=== PATIENT | female | born 1940 | race African-American/Black ===

== ENCOUNTER 2018-05-03 17:40 | Inpatient (IN) | payer MEDICARE, MEDICAID ==
[~2018-05-03] VITALS: Ht 165.1 cm; Wt 70.3 kg
[2018-05-03] MEDS: METOPROLOL TARTRATE 25MG TABLET PO SCH
[2018-05-03] MEDS ORDERED: ONDANSETRON HCL 4MG/2ML INJ IV STA (18:37)
[2018-05-03] MEDS ORDERED: MORPHINE SULFATE 4 MG/ML CPJ (NOT FOR IM USE) IV STA (18:37)
[2018-05-03] MEDS ORDERED: SODIUM CHLORIDE 0.9% 1,000 ML IV ONE (18:37)
[2018-05-03 19:01] LABS: HEMATOCRIT. 37.8 % (36.0-48.0); HEMOGLOBIN. 12.2 g/dL (12.0-16.0); MEAN CORPUSCULAR VOLUME 86.9 fL (81.0-99.0); MEAN PLATELET VOLUME 8.1 fl (7.4-10.4); PLATELET 230 x1000/uL (130-400); RED BLOOD CELL COUNT 4.35 mill/uL (4.2-5.4); RED CELL DISTRIBUTION WIDTH 16.3 % (11.6-14.6)
[2018-05-03 19:10] LABS: INR 1.1; PROTHROMBIN TIME 10.6 sec (9.1-11.1)
[2018-05-03 19:17] LABS: CHLORIDE 105 mEq/L (98-107)
[2018-05-03 19:21] LABS: ETHANOL BLOOD < 10 mg/dL
[2018-05-03 19:26] LABS: CREATINE KINASE 114 IU/L (26-192)
[2018-05-03] MEDS ORDERED: MAGNESIUM/ALUMINUM HYDROXIDE/SIMETHICONE 30ML UDC PO PRN (19:45)
[2018-05-03] MEDS ORDERED: DOCUSATE SODIUM 100MG CAPSULE PO PRN (19:45)
[2018-05-03] MEDS ORDERED: KETOROLAC 15MG/ML VIAL IV PRN (19:45)
[2018-05-03] MEDS ORDERED: DIPHENHYDRAMINE 50MG/ML VIAL IV PRN (19:45)
[2018-05-03] MEDS ORDERED: LORAZEPAM 0.5MG TABLET PO PRN (19:45)
[2018-05-03] MEDS ORDERED: IPRATROPIUM/ALBUTEROL 0.5-3(2.5)MG/3ML NEB INH PRN (19:45)
[2018-05-03] MEDS ORDERED: ACETAMINOPHEN 325MG TABLET PO PRN (19:45)
[2018-05-03] MEDS ORDERED: NITROGLYCERIN 0.4MG TABLET SL SL PRN (19:45)
[2018-05-03] MEDS ORDERED: TRAMADOL 50MG TABLET PO PRN (19:45)
[2018-05-03] MEDS ORDERED: GUAIFENESIN 200MG/10ML SUGAR FREE UDC PO PRN (19:45)
[2018-05-03] MEDS ORDERED: CLONIDINE 0.1MG TABLET PO PRN (19:45)
[2018-05-03] MEDS ORDERED: ONDANSETRON HCL 4MG/2ML INJ IV PRN (19:45)
[2018-05-03 20:14] LABS: PLATELET ESTIMATE NORMAL
[2018-05-03] MEDS ORDERED: FAMOTIDINE 20MG TABLET PO SCH (21:00)
[2018-05-03] MEDS: LISINOPRIL 20MG TABLET PO SCH (23:27)
[2018-05-03] MEDS: FAMOTIDINE 20MG TABLET PO SCH (23:28)
[2018-05-03] MEDS: ASCORBIC ACID 500 MG TABLET PO SCH (23:29)
[2018-05-03] MEDS ORDERED: ZOLPIDEM TARTRATE 5MG TABLET PO PRN (23:29)
[2018-05-03 23:30] VITALS: BP 139/65
[2018-05-03] MEDS ORDERED: NA PHOS,M-B/NA PHOS,DI-BA ENEMA 118ML PR PRN (23:30)
[2018-05-04] MEDS: MORPHINE SULFATE 4 MG/ML CPJ (NOT FOR IM USE) IV PRN ×3 (00:08→17:53)
[2018-05-04] MEDS: DEXT 5%/0.45% NACL 1000ML 1,000 ML IV SCH ×2 (03:36→15:06)
[2018-05-04 04:00] VITALS: BP 150/72
[2018-05-04] MEDS ORDERED: BACITRACIN 15GM TUBE TOP ONE (07:17)
[2018-05-04] MEDS ORDERED: VANCOMYCIN HCL 500 MG/VIAL ONE (07:17)
[2018-05-04 08:00] VITALS: BP 164/71
[2018-05-04] MEDS ORDERED: ROCURONIUM BROMIDE 10MG/ML VIAL 5ML IV ONE (09:12)
[2018-05-04] MEDS ORDERED: MIDAZOLAM HCL 2 MG/2 ML VIAL ONE (09:12)
[2018-05-04] MEDS ORDERED: FENTANYL CITRATE/PF 50MCG/ML 2ML VIAL ONE ×2 (09:12→10:26)
[2018-05-04] MEDS ORDERED: SODIUM CHLORIDE 0.9% 10ML VIAL ONE ×3 (09:16→10:16)
[2018-05-04] MEDS ORDERED: CEFAZOLIN SODIUM 1000MG/VIAL ONE (09:16)
[2018-05-04] MEDS ORDERED: DEXAMETHASONE 4MG/ML 1ML VIAL ONE (09:16)
[2018-05-04] MEDS ORDERED: PHENYLEPHRINE HCL 10 MG/ML 1ML (IV VIAL) IV ONE (09:20)
[2018-05-04] MEDS ORDERED: ONDANSETRON HCL 4MG/2ML INJ ONE (09:46)
[2018-05-04] MEDS ORDERED: HYDRALAZINE 20MG/ML VIAL ONE (10:16)
[2018-05-04] MEDS ORDERED: HYDROMORPHONE HCL/PF 2MG/ML CPJ IV PRN (10:30)
[2018-05-04] MEDS ORDERED: KETOROLAC 30MG/ML VIAL IV PRN (11:45)
[2018-05-04 12:30] VITALS: BP 130/69
[2018-05-04] MEDS: LISINOPRIL 20MG TABLET PO SCH ×2 (14:58→21:00)
[2018-05-04] MEDS: FAMOTIDINE 20MG TABLET PO SCH (14:58)
[2018-05-04] MEDS: ASCORBIC ACID 500 MG TABLET PO SCH ×2 (14:58→20:26)
[2018-05-04] MEDS: CEFAZOLIN 1000MG PREMIX 50 ML IV SCH ×2 (14:59→22:47)
[2018-05-04] MEDS: METOPROLOL TARTRATE 25MG TABLET PO SCH ×2 (14:59→21:00)
[2018-05-04] MEDS: ENOXAPARIN 40MG/0.4ML SYR SUBCUT SCH (15:05)
[2018-05-04] MEDS: ZINC SULFATE 220 MG ( 50 ) CAPSULE PO SCH (15:12)
[2018-05-04] MEDS: FERROUS SULFATE 300MG/5ML UDC PO SCH ×3 (15:12→17:47)
[2018-05-04 16:07] VITALS: BP 124/62
[2018-05-04 20:00] VITALS: BP 110/49
[2018-05-04 23:12] LABS: CLARITY URINE CLEAR (CLEAR); COLOR URINE YELLOW (YELLOW); KETONES URINE TRACE (NEGATIVE); LEUKOCYTE ESTERASE URINE 1+ (NEGATIVE); NITRITE URINE NEGATIVE (NEGATIVE); OCCULT BLOOD URINE NEGATIVE (NEGATIVE); PROTEIN URINE NEGATIVE (NEGATIVE); SPECIFIC GRAVITY URINE 1.025 (1.005-1.030); UROBILINOGEN URINE 0.2 E.U./dL (0.2-1.0)
[2018-05-05] VITALS: BP 107/45
[2018-05-05] MEDS: MORPHINE SULFATE 4 MG/ML CPJ (NOT FOR IM USE) IV PRN ×2 (00:35→10:21)
[2018-05-05] MEDS: DEXT 5%/0.45% NACL 1000ML 1,000 ML IV SCH ×2 (03:05→18:16)
[2018-05-05 04:00] VITALS: BP 100/47
[2018-05-05] MEDS: CEFAZOLIN 1000MG PREMIX 50 ML IV SCH ×3 (05:40→21:47)
[2018-05-05 08:00] VITALS: BP 100/41
[2018-05-05] MEDS: LISINOPRIL 20MG TABLET PO SCH ×2 (09:00→22:34)
[2018-05-05] MEDS: METOPROLOL TARTRATE 25MG TABLET PO SCH ×2 (09:00→22:34)
[2018-05-05] MEDS: ASCORBIC ACID 500 MG TABLET PO SCH ×2 (10:20→22:33)
[2018-05-05] MEDS: ZINC SULFATE 220 MG ( 50 ) CAPSULE PO SCH (10:20)
[2018-05-05] MEDS: FAMOTIDINE 20MG TABLET PO SCH (10:20)
[2018-05-05] MEDS: ENOXAPARIN 40MG/0.4ML SYR SUBCUT SCH (10:20)
[2018-05-05] MEDS: FERROUS SULFATE 300MG/5ML UDC PO SCH ×3 (10:20→18:14)
[2018-05-05 12:00] VITALS: BP 108/45
[2018-05-05] MEDS: LACTULOSE 20G/30ML UDC PO SCH ×3 (18:14→21:00)
[2018-05-05] MEDS: DOCUSATE SODIUM 100MG CAPSULE PO SCH (18:14)
[2018-05-05 20:00] VITALS: BP 135/55
[2018-05-05] MEDS: POLYETHYLENE GLYCOL 3350 (17GM) 1 DOSE PACK PO SCH (22:34)
[2018-05-06] VITALS (7 sets, daily range): BP systolic 95–161; BP diastolic 40–89
[2018-05-06] MEDS: CEFAZOLIN 1000MG PREMIX 50 ML IV SCH ×3 (06:10→21:36)
[2018-05-06 06:33] LABS: BASOPHILS % 0.3 % (0.0-2.0); EOSINOPHILS % 0.1 % (0.0-5.0); HEMATOCRIT. 24.8 % (36.0-48.0); HEMOGLOBIN. 8.2 g/dL (12.0-16.0); LYMPHOCYTES % 10.8 % (20.0-50.0); MEAN CORPUSCULAR HEMOGLOBIN 28.3 pg (28.0-32.0); MEAN CORPUSCULAR VOLUME 86.3 fL (81.0-99.0); MEAN PLATELET VOLUME 8.3 fl (7.4-10.4); NEUTROPHILS % 82.8 % (40.0-76.0); PLATELET 148 x1000/uL (130-400); RED BLOOD CELL COUNT 2.88 mill/uL (4.2-5.4); RED CELL DISTRIBUTION WIDTH 15.7 % (11.6-14.6)
[2018-05-06 07:45] LABS: CHLORIDE 104 mEq/L (98-107)
[2018-05-06 07:55] LABS: CREATINE KINASE 291 IU/L (26-192)
[2018-05-06] MEDS: FERROUS SULFATE 300MG/5ML UDC PO SCH ×3 (09:08→18:28)
[2018-05-06] MEDS: DOCUSATE SODIUM 100MG CAPSULE PO SCH ×2 (09:09→18:28)
[2018-05-06] MEDS: LISINOPRIL 20MG TABLET PO SCH ×2 (09:09→21:00)
[2018-05-06] MEDS: FAMOTIDINE 20MG TABLET PO SCH (09:09)
[2018-05-06] MEDS: METOPROLOL TARTRATE 25MG TABLET PO SCH ×2 (09:09→21:00)
[2018-05-06] MEDS: ZINC SULFATE 220 MG ( 50 ) CAPSULE PO SCH (09:09)
[2018-05-06] MEDS: ASCORBIC ACID 500 MG TABLET PO SCH ×2 (09:09→21:35)
[2018-05-06] MEDS: ENOXAPARIN 40MG/0.4ML SYR SUBCUT SCH (09:10)
[2018-05-06] MEDS: MORPHINE SULFATE 4 MG/ML CPJ (NOT FOR IM USE) IV PRN (09:11)
[2018-05-06] MEDS ORDERED: HYDROCODONE/ACETAMINOPHEN 10/325MG TABLET PO PRN (11:15)
[2018-05-06] MEDS: DEXT 5%/0.45% NACL 1000ML 1,000 ML IV SCH (18:29)
[2018-05-06] MEDS: POLYETHYLENE GLYCOL 3350 (17GM) 1 DOSE PACK PO SCH (21:54)
[2018-05-07 04:00] VITALS: BP 120/51
[2018-05-07] MEDS: CEFAZOLIN 1000MG PREMIX 50 ML IV SCH ×2 (05:22→14:16)
[2018-05-07 07:13] LABS: BASOPHILS % 0.5 % (0.0-2.0); EOSINOPHILS % 0.3 % (0.0-5.0); HEMATOCRIT. 24.8 % (36.0-48.0); HEMOGLOBIN. 8.3 g/dL (12.0-16.0); LYMPHOCYTES % 14.2 % (20.0-50.0); MEAN CORPUSCULAR HEMOGLOBIN 28.8 pg (28.0-32.0); MEAN CORPUSCULAR VOLUME 86.4 fL (81.0-99.0); MEAN PLATELET VOLUME 8.5 fl (7.4-10.4); MONOCYTES % 5.8 % (2.0-8.0); NEUTROPHILS % 79.2 % (40.0-76.0); PLATELET 184 x1000/uL (130-400); RED BLOOD CELL COUNT 2.87 mill/uL (4.2-5.4); RED CELL DISTRIBUTION WIDTH 15.9 % (11.6-14.6)
[2018-05-07 07:42] LABS: CREATINE KINASE 247 IU/L (26-192)
[2018-05-07 08:00] VITALS: BP 127/60
[2018-05-07] MEDS: FERROUS SULFATE 300MG/5ML UDC PO SCH ×2 (08:48→12:37)
[2018-05-07] MEDS: DOCUSATE SODIUM 100MG CAPSULE PO SCH (08:49)
[2018-05-07] MEDS: ZINC SULFATE 220 MG ( 50 ) CAPSULE PO SCH (08:49)
[2018-05-07] MEDS: FAMOTIDINE 20MG TABLET PO SCH (08:49)
[2018-05-07] MEDS: ASCORBIC ACID 500 MG TABLET PO SCH (08:49)
[2018-05-07] MEDS: METOPROLOL TARTRATE 25MG TABLET PO SCH (08:49)
[2018-05-07] MEDS: LISINOPRIL 20MG TABLET PO SCH (08:50)
[2018-05-07] MEDS: HYDROCODONE/ACETAMINOPHEN 10/325MG TABLET PO PRN ×2 (09:31→16:52)
[2018-05-07] MEDS: ENOXAPARIN 40MG/0.4ML SYR SUBCUT SCH (09:32)
[2018-05-07 12:00] VITALS: BP 123/55
[2018-05-07] MEDS: DEXT 5%/0.45% NACL 1000ML 1,000 ML IV SCH (12:40)
[2018-05-07 16:00] VITALS: BP 104/42
[2018-05-07 16:37] VITALS: BP 125/58
[2018-05-07 16:52] VITALS: BP 125/58
== END 2018-05-07 17:30 | DRG 481 ==
LOC: ER 17:40 → SUPCPDRO 19:32 → EDBEDREQSVC 19:40 → EDBEDREQTM 19:40 → EDBEDREQ 19:40 → ENRESERV 22:44 → 6EST 23:17
PROVIDERS: ADMIT Internal Medicine; ATTEND Internal Medicine
PROC: 0QS636Z Reposition Right Upper Femur with Intramedullary Internal Fixation Device, Percutaneous Approach (ICD-10-PCS; principal; 2018-05-04)
DX: S72.141A Displaced intertrochanteric fracture of right femur, initial encounter for closed fracture (principal); D62 Acute posthemorrhagic anemia; I10 Essential (primary) hypertension; F17.210 Nicotine dependence, cigarettes, uncomplicated; R26.9 Unspecified abnormalities of gait and mobility; R73.9 Hyperglycemia, unspecified; W18.30XA Fall on same level, unspecified, initial encounter; Z79.899 Other long term (current) drug therapy; Z82.49 Family history of ischemic heart disease and other diseases of the circulatory system; Y93.89 Activity, other specified; Y92.091 Bathroom in other non-institutional residence as the place of occurrence of the external cause; Y99.8 Other external cause status
CPT/HCPCS: 36415; 71045; 72170; 73502; 80048; 80320; 82550; 83036; 84484; 86850; 86900; 93005; 93970; 96374; 96375; 97163; 97166; 97530; 99285; C1713; C1893; J0360; J0690; J1100; J1170; J1650; J1885; J2250; J2270; J2370; J2405; J3010; J3370; J3490; J7030; J7040; G0480

== ENCOUNTER 2018-05-07 18:21 | Inpatient (IN) | payer MEDICARE, MEDICAID ==
[~2018-05-07] VITALS: Ht 165.1 cm; Wt 69.9 kg
[2018-05-07 18:58] VITALS: BP 103/40
[2018-05-07 20:00] VITALS: BP 117/41
[2018-05-07] MEDS ORDERED: IPRATROPIUM/ALBUTEROL 0.5-3(2.5)MG/3ML NEB HHN PRN (20:15)
[2018-05-07] MEDS ORDERED: DIPHENHYDRAMINE 50MG/ML VIAL IV PRN (20:15)
[2018-05-07] MEDS ORDERED: NA PHOS,M-B/NA PHOS,DI-BA ENEMA 118ML PR PRN (20:15)
[2018-05-07] MEDS ORDERED: HYDROCODONE/ACETAMINOPHEN 10/325MG TABLET PO PRN (20:15)
[2018-05-07] MEDS ORDERED: LORAZEPAM 0.5MG TABLET PO PRN (20:15)
[2018-05-07] MEDS ORDERED: ONDANSETRON HCL 4MG/2ML INJ IV PRN (20:15)
[2018-05-07] MEDS ORDERED: DOCUSATE SODIUM 100MG CAPSULE PO PRN (20:15)
[2018-05-07] MEDS ORDERED: KETOROLAC 15MG/ML VIAL IV PRN (20:15)
[2018-05-07] MEDS ORDERED: CLONIDINE 0.1MG TABLET PO PRN (20:15)
[2018-05-07] MEDS ORDERED: MAGNESIUM/ALUMINUM HYDROXIDE/SIMETHICONE 30ML UDC PO PRN (20:15)
[2018-05-07] MEDS ORDERED: NITROGLYCERIN 0.4MG TABLET SL SL PRN (20:15)
[2018-05-07] MEDS ORDERED: GUAIFENESIN 200MG/10ML SUGAR FREE UDC PO PRN (20:15)
[2018-05-07] MEDS ORDERED: ZOLPIDEM TARTRATE 5MG TABLET PO PRN (20:15)
[2018-05-07] MEDS: POLYETHYLENE GLYCOL 3350 (17GM) 1 DOSE PACK PO SCH (22:00)
[2018-05-07] MEDS ORDERED: CEFAZOLIN SODIUM 1000MG/VIAL IV SCH (22:00)
[2018-05-07] MEDS: LISINOPRIL 20MG TABLET PO SCH (22:00)
[2018-05-07] MEDS: METOPROLOL TARTRATE 25MG TABLET PO SCH (22:00)
[2018-05-07] MEDS: ASCORBIC ACID 500 MG TABLET PO SCH (22:40)
[2018-05-07] MEDS: DEXT 5%/0.45% NACL 1000ML 1,000 ML IV SCH (22:46)
[2018-05-07] MEDS: CEFAZOLIN 1000MG PREMIX 50 ML IV SCH (23:22)
[2018-05-08 06:06] LABS: BASOPHILS % 0.5 % (0.0-2.0); HEMATOCRIT. 22.7 % (36.0-48.0); HEMOGLOBIN. 7.4 g/dL (12.0-16.0); LYMPHOCYTES % 12.4 % (20.0-50.0); MEAN CORPUSCULAR HEMOGLOBIN 28.1 pg (28.0-32.0); MEAN CORPUSCULAR VOLUME 86.7 fL (81.0-99.0); MEAN PLATELET VOLUME 7.9 fl (7.4-10.4); MONOCYTES % 8.1 % (2.0-8.0); PLATELET 207 x1000/uL (130-400); RED BLOOD CELL COUNT 2.62 mill/uL (4.2-5.4); RED CELL DISTRIBUTION WIDTH 15.7 % (11.6-14.6)
[2018-05-08] MEDS: CEFAZOLIN 1000MG PREMIX 50 ML IV SCH ×3 (06:15→20:14)
[2018-05-08 06:42] LABS: CHLORIDE 105 mEq/L (98-107)
[2018-05-08 08:00] VITALS: BP 128/52
[2018-05-08] MEDS: METOPROLOL TARTRATE 25MG TABLET PO SCH ×2 (08:53→20:06)
[2018-05-08] MEDS: ZINC SULFATE 220 MG ( 50 ) CAPSULE PO SCH (08:53)
[2018-05-08] MEDS: FERROUS SULFATE 325MG TABLET PO SCH ×3 (08:54→16:01)
[2018-05-08] MEDS: LISINOPRIL 20MG TABLET PO SCH ×2 (08:54→20:07)
[2018-05-08] MEDS: DOCUSATE SODIUM 100MG CAPSULE PO SCH ×2 (08:54→16:01)
[2018-05-08] MEDS: FAMOTIDINE 20MG TABLET PO SCH (08:54)
[2018-05-08] MEDS: ASCORBIC ACID 500 MG TABLET PO SCH ×2 (08:54→20:05)
[2018-05-08] MEDS: HYDROCODONE/ACETAMINOPHEN 10/325MG TABLET PO PRN ×2 (08:55→20:14)
[2018-05-08] MEDS: ENOXAPARIN 40MG/0.4ML SYR SUBCUT SCH (10:18)
[2018-05-08] MEDS: DEXT 5%/0.45% NACL 1000ML 1,000 ML IV SCH (11:19)
[2018-05-08 15:18] LABS: CLARITY URINE CLEAR (CLEAR); COLOR URINE YELLOW (YELLOW); KETONES URINE NEGATIVE (NEGATIVE); LEUKOCYTE ESTERASE URINE 1+ (NEGATIVE); NITRITE URINE NEGATIVE (NEGATIVE); OCCULT BLOOD URINE NEGATIVE (NEGATIVE); PROTEIN URINE NEGATIVE (NEGATIVE); SPECIFIC GRAVITY URINE 1.016 (1.005-1.030); UROBILINOGEN URINE 0.2 E.U./dL (0.2-1.0)
[2018-05-08 20:00] VITALS: BP 126/58
[2018-05-08] MEDS: POLYETHYLENE GLYCOL 3350 (17GM) 1 DOSE PACK PO SCH (20:14)
[2018-05-09] MEDS: DEXT 5%/0.45% NACL 1000ML 1,000 ML IV SCH ×2 (01:02→14:50)
[2018-05-09] MEDS: CEFAZOLIN 1000MG PREMIX 50 ML IV SCH ×3 (05:36→22:48)
[2018-05-09] MEDS: HYDROCODONE/ACETAMINOPHEN 10/325MG TABLET PO PRN ×2 (06:28→19:36)
[2018-05-09 07:17] LABS: BASOPHILS % 1.1 % (0.0-2.0); EOSINOPHILS % 0.7 % (0.0-5.0); HEMATOCRIT. 22.2 % (36.0-48.0); HEMOGLOBIN. 7.4 g/dL (12.0-16.0); LYMPHOCYTES % 15.3 % (20.0-50.0); MEAN CORPUSCULAR HEMOGLOBIN 28.6 pg (28.0-32.0); MEAN CORPUSCULAR VOLUME 86.3 fL (81.0-99.0); MEAN PLATELET VOLUME 7.7 fl (7.4-10.4); MONOCYTES % 6.5 % (2.0-8.0); NEUTROPHILS % 76.4 % (40.0-76.0); PLATELET 249 x1000/uL (130-400); RED BLOOD CELL COUNT 2.57 mill/uL (4.2-5.4); RED CELL DISTRIBUTION WIDTH 15.6 % (11.6-14.6)
[2018-05-09 07:40] LABS: CHLORIDE 103 mEq/L (98-107)
[2018-05-09 07:47] LABS: LDL CHOLESTEROL 80 mg/dL (5-100)
[2018-05-09 07:51] LABS: PHOSPHORUS 3.4 mg/dL (2.5-4.9)
[2018-05-09 07:52] LABS: HDL CHOLESTEROL 47 mg/dL (40-59)
[2018-05-09 07:53] LABS: TOTAL IRON BINDING CAPACITY 229 ug/dL (250-450)
[2018-05-09 07:57] LABS: FOLIC ACID (FOLATE) SERUM 8.7 ng/mL (>5.38)
[2018-05-09 08:00] VITALS: BP 139/44
[2018-05-09] MEDS: DOCUSATE SODIUM 100MG CAPSULE PO SCH ×2 (09:12→17:07)
[2018-05-09] MEDS: ASCORBIC ACID 500 MG TABLET PO SCH ×2 (09:12→21:15)
[2018-05-09] MEDS: ZINC SULFATE 220 MG ( 50 ) CAPSULE PO SCH (09:12)
[2018-05-09] MEDS: FERROUS SULFATE 325MG TABLET PO SCH ×3 (09:12→17:07)
[2018-05-09] MEDS: ENOXAPARIN 40MG/0.4ML SYR SUBCUT SCH (09:12)
[2018-05-09] MEDS: METOPROLOL TARTRATE 25MG TABLET PO SCH ×2 (09:13→21:14)
[2018-05-09] MEDS: FAMOTIDINE 20MG TABLET PO SCH (09:13)
[2018-05-09] MEDS: LISINOPRIL 20MG TABLET PO SCH ×2 (09:13→21:14)
[2018-05-09 20:00] VITALS: BP 123/49
[2018-05-09 20:10] VITALS: BP 121/49
[2018-05-09] MEDS: POLYETHYLENE GLYCOL 3350 (17GM) 1 DOSE PACK PO SCH (21:15)
[2018-05-09] MEDS: IRON SUCROSE COMPLEX 100 MG in SODIUM CHLORIDE 0.9% 100 ML IV SCH (22:08)
[2018-05-10] MEDS: DEXT 5%/0.45% NACL 1000ML 1,000 ML IV SCH ×2 (03:16→22:15)
[2018-05-10] MEDS: CEFAZOLIN 1000MG PREMIX 50 ML IV SCH ×3 (06:13→22:14)
[2018-05-10 08:23] VITALS: BP 127/46
[2018-05-10] MEDS: ZINC SULFATE 220 MG ( 50 ) CAPSULE PO SCH (08:31)
[2018-05-10] MEDS: ASCORBIC ACID 500 MG TABLET PO SCH ×2 (08:32→22:17)
[2018-05-10] MEDS: ENOXAPARIN 40MG/0.4ML SYR SUBCUT SCH (08:32)
[2018-05-10] MEDS: METOPROLOL TARTRATE 25MG TABLET PO SCH ×2 (08:32→21:00)
[2018-05-10] MEDS: LISINOPRIL 20MG TABLET PO SCH ×2 (08:32→22:17)
[2018-05-10] MEDS: FAMOTIDINE 20MG TABLET PO SCH (08:32)
[2018-05-10] MEDS: DOCUSATE SODIUM 100MG CAPSULE PO SCH ×2 (08:33→17:18)
[2018-05-10] MEDS: HYDROCODONE/ACETAMINOPHEN 10/325MG TABLET PO PRN (08:39)
[2018-05-10 20:00] VITALS: BP 122/56
[2018-05-10] MEDS: POLYETHYLENE GLYCOL 3350 (17GM) 1 DOSE PACK PO SCH (21:00)
[2018-05-10] MEDS: IRON SUCROSE COMPLEX 100 MG in SODIUM CHLORIDE 0.9% 100 ML IV SCH (22:14)
[2018-05-10] MEDS: TRAMADOL 50MG TABLET PO PRN (22:16)
[2018-05-11] MEDS: CEFAZOLIN 1000MG PREMIX 50 ML IV SCH (05:26)
[2018-05-11] MEDS: DEXT 5%/0.45% NACL 1000ML 1,000 ML IV SCH ×2 (05:27→18:38)
[2018-05-11 08:00] VITALS: BP 102/53
[2018-05-11] MEDS: FAMOTIDINE 20MG TABLET PO SCH (08:45)
[2018-05-11] MEDS: ZINC SULFATE 220 MG ( 50 ) CAPSULE PO SCH (08:45)
[2018-05-11] MEDS: ENOXAPARIN 40MG/0.4ML SYR SUBCUT SCH (08:45)
[2018-05-11] MEDS: ASCORBIC ACID 500 MG TABLET PO SCH ×2 (08:45→21:49)
[2018-05-11] MEDS: DOCUSATE SODIUM 100MG CAPSULE PO SCH ×2 (08:45→16:41)
[2018-05-11] MEDS: LISINOPRIL 20MG TABLET PO SCH ×2 (08:46→21:00)
[2018-05-11] MEDS: METOPROLOL TARTRATE 25MG TABLET PO SCH ×2 (08:46→21:00)
[2018-05-11] MEDS: TRAMADOL 50MG TABLET PO PRN ×2 (08:46→16:44)
[2018-05-11 20:00] VITALS: BP 111/46
[2018-05-11] MEDS: IRON SUCROSE COMPLEX 100 MG in SODIUM CHLORIDE 0.9% 100 ML IV SCH (21:50)
[2018-05-11] MEDS: POLYETHYLENE GLYCOL 3350 (17GM) 1 DOSE PACK PO SCH (21:50)
[2018-05-12 07:01] LABS: CHLORIDE 101 mEq/L (98-107)
[2018-05-12 07:12] LABS: BASOPHILS % 0.4 % (0.0-2.0); EOSINOPHILS % 0.9 % (0.0-5.0); HEMATOCRIT. 23.5 % (36.0-48.0); HEMOGLOBIN. 7.7 g/dL (12.0-16.0); LYMPHOCYTES % 15.4 % (20.0-50.0); MEAN CORPUSCULAR HEMOGLOBIN 28.2 pg (28.0-32.0); MEAN CORPUSCULAR VOLUME 86.8 fL (81.0-99.0); MEAN PLATELET VOLUME 7.2 fl (7.4-10.4); MONOCYTES % 6.9 % (2.0-8.0); NEUTROPHILS % 76.4 % (40.0-76.0); PLATELET 352 x1000/uL (130-400); RED BLOOD CELL COUNT 2.71 mill/uL (4.2-5.4); RED CELL DISTRIBUTION WIDTH 15.7 % (11.6-14.6)
[2018-05-12 08:00] VITALS: BP 122/51
[2018-05-12] MEDS: DEXT 5%/0.45% NACL 1000ML 1,000 ML IV SCH (08:50)
[2018-05-12] MEDS: FAMOTIDINE 20MG TABLET PO SCH (08:51)
[2018-05-12] MEDS: DOCUSATE SODIUM 100MG CAPSULE PO SCH ×2 (08:51→16:11)
[2018-05-12] MEDS: ENOXAPARIN 40MG/0.4ML SYR SUBCUT SCH (08:51)
[2018-05-12] MEDS: ASCORBIC ACID 500 MG TABLET PO SCH ×2 (08:51→21:40)
[2018-05-12] MEDS: ZINC SULFATE 220 MG ( 50 ) CAPSULE PO SCH (08:51)
[2018-05-12] MEDS: METOPROLOL TARTRATE 25MG TABLET PO SCH ×2 (08:52→21:00)
[2018-05-12] MEDS: TRAMADOL 50MG TABLET PO PRN (08:52)
[2018-05-12] MEDS: LISINOPRIL 20MG TABLET PO SCH ×2 (08:57→21:00)
[2018-05-12] MEDS ORDERED: LACTULOSE 20G/30ML UDC PO PRN (12:15)
[2018-05-12] MEDS ORDERED: HYDROCODONE/ACETAMINOPHEN 10/325MG TABLET PO PRN (12:15)
[2018-05-12] MEDS: ACETAMINOPHEN 325MG TABLET PO PRN (15:35)
[2018-05-12 20:00] VITALS: BP 111/49
[2018-05-12] MEDS: POLYETHYLENE GLYCOL 3350 (17GM) 1 DOSE PACK PO SCH (21:00)
[2018-05-12] MEDS ORDERED: ZOLPIDEM TARTRATE 5MG TABLET PO PRN (21:00)
[2018-05-12] MEDS: HYDROCODONE/ACETAMINOPHEN 10/325MG TABLET PO PRN (21:40)
[2018-05-12] MEDS: IRON SUCROSE COMPLEX 100 MG in SODIUM CHLORIDE 0.9% 100 ML IV SCH (21:41)
[2018-05-13] MEDS: HYDROCODONE/ACETAMINOPHEN 10/325MG TABLET PO PRN ×2 (06:45→21:21)
[2018-05-13 08:05] VITALS: BP 115/49
[2018-05-13] MEDS: FAMOTIDINE 20MG TABLET PO SCH (09:03)
[2018-05-13] MEDS: ZINC SULFATE 220 MG ( 50 ) CAPSULE PO SCH (09:03)
[2018-05-13] MEDS: ASCORBIC ACID 500 MG TABLET PO SCH ×2 (09:03→21:09)
[2018-05-13] MEDS: DOCUSATE SODIUM 100MG CAPSULE PO SCH ×2 (09:04→16:53)
[2018-05-13] MEDS: METOPROLOL TARTRATE 25MG TABLET PO SCH ×2 (09:04→21:00)
[2018-05-13] MEDS: LISINOPRIL 20MG TABLET PO SCH ×2 (09:04→21:00)
[2018-05-13] MEDS: ENOXAPARIN 40MG/0.4ML SYR SUBCUT SCH (09:05)
[2018-05-13 20:00] VITALS: BP_SYST 130
[2018-05-13] MEDS: POLYETHYLENE GLYCOL 3350 (17GM) 1 DOSE PACK PO SCH (21:00)
[2018-05-13] MEDS: IRON SUCROSE COMPLEX 100 MG in SODIUM CHLORIDE 0.9% 100 ML IV SCH (21:09)
[2018-05-14 07:36] LABS: BASOPHILS % 0.5 % (0.0-2.0); HEMATOCRIT. 23.9 % (36.0-48.0); HEMOGLOBIN. 7.7 g/dL (12.0-16.0); LYMPHOCYTES % 14.4 % (20.0-50.0); MEAN CORPUSCULAR HEMOGLOBIN 28.3 pg (28.0-32.0); MEAN CORPUSCULAR VOLUME 87.9 fL (81.0-99.0); MEAN PLATELET VOLUME 7.1 fl (7.4-10.4); MONOCYTES % 5.8 % (2.0-8.0); NEUTROPHILS % 78.3 % (40.0-76.0); PLATELET 414 x1000/uL (130-400); RED BLOOD CELL COUNT 2.72 mill/uL (4.2-5.4); RED CELL DISTRIBUTION WIDTH 16.6 % (11.6-14.6)
[2018-05-14 08:00] VITALS: BP 129/45
[2018-05-14 08:17] LABS: CHLORIDE 104 mEq/L (98-107)
[2018-05-14 08:21] LABS: 25-HYDROXY VITAMIN D3 5.6 ng/mL (.)
[2018-05-14] MEDS: LISINOPRIL 20MG TABLET PO SCH ×2 (09:00→21:00)
[2018-05-14] MEDS: ENOXAPARIN 40MG/0.4ML SYR SUBCUT SCH (10:12)
[2018-05-14] MEDS: DOCUSATE SODIUM 100MG CAPSULE PO SCH ×2 (10:13→17:33)
[2018-05-14] MEDS: ASCORBIC ACID 500 MG TABLET PO SCH ×2 (10:13→20:47)
[2018-05-14] MEDS: METOPROLOL TARTRATE 25MG TABLET PO SCH ×2 (10:13→20:47)
[2018-05-14] MEDS: FAMOTIDINE 20MG TABLET PO SCH (10:13)
[2018-05-14] MEDS: ZINC SULFATE 220 MG ( 50 ) CAPSULE PO SCH (10:13)
[2018-05-14] MEDS: HYDROCODONE/ACETAMINOPHEN 10/325MG TABLET PO PRN (10:15)
[2018-05-14] MEDS: FERROUS SULFATE 325MG TABLET PO SCH ×3 (12:22→17:33)
[2018-05-14 20:00] VITALS: BP 118/59
[2018-05-14] MEDS: POLYETHYLENE GLYCOL 3350 (17GM) 1 DOSE PACK PO SCH (20:47)
[2018-05-15] MEDS: ERGOCALCIFEROL 50000UNITS CAPSULE PO SCH (00:06)
[2018-05-15] MEDS: TRAMADOL 50MG TABLET PO PRN (00:10)
[2018-05-15 08:16] VITALS: BP 125/52
[2018-05-15] MEDS: ENOXAPARIN 40MG/0.4ML SYR SUBCUT SCH (08:35)
[2018-05-15] MEDS: FAMOTIDINE 20MG TABLET PO SCH (08:36)
[2018-05-15] MEDS: ASCORBIC ACID 500 MG TABLET PO SCH ×2 (08:36→21:56)
[2018-05-15] MEDS: LISINOPRIL 20MG TABLET PO SCH ×2 (08:36→21:57)
[2018-05-15] MEDS: METOPROLOL TARTRATE 25MG TABLET PO SCH ×2 (08:36→21:58)
[2018-05-15] MEDS: FERROUS SULFATE 325MG TABLET PO SCH ×3 (08:37→17:49)
[2018-05-15] MEDS: DOCUSATE SODIUM 100MG CAPSULE PO SCH ×2 (08:37→17:49)
[2018-05-15] MEDS: ZINC SULFATE 220 MG ( 50 ) CAPSULE PO SCH (08:37)
[2018-05-15] MEDS: HYDROCODONE/ACETAMINOPHEN 10/325MG TABLET PO PRN ×2 (10:36→22:10)
[2018-05-15 20:00] VITALS: BP 137/52
[2018-05-15] MEDS: POLYETHYLENE GLYCOL 3350 (17GM) 1 DOSE PACK PO SCH (21:56)
[2018-05-16 06:38] LABS: BASOPHILS % 0.6 % (0.0-2.0); EOSINOPHILS % 0.9 % (0.0-5.0); HEMATOCRIT. 25.9 % (36.0-48.0); HEMOGLOBIN. 8.4 g/dL (12.0-16.0); LYMPHOCYTES % 16.4 % (20.0-50.0); MEAN CORPUSCULAR HEMOGLOBIN 28.9 pg (28.0-32.0); MEAN CORPUSCULAR VOLUME 89.1 fL (81.0-99.0); MONOCYTES % 6.4 % (2.0-8.0); NEUTROPHILS % 75.7 % (40.0-76.0); PLATELET 427 x1000/uL (130-400); RED CELL DISTRIBUTION WIDTH 18.4 % (11.6-14.6)
[2018-05-16 07:31] LABS: CHLORIDE 103 mEq/L (98-107)
[2018-05-16 08:00] VITALS: BP 116/50
[2018-05-16] MEDS: ENOXAPARIN 40MG/0.4ML SYR SUBCUT SCH (08:47)
[2018-05-16] MEDS: ZINC SULFATE 220 MG ( 50 ) CAPSULE PO SCH (08:47)
[2018-05-16] MEDS: LISINOPRIL 20MG TABLET PO SCH ×2 (08:47→20:59)
[2018-05-16] MEDS: ASCORBIC ACID 500 MG TABLET PO SCH ×2 (08:48→20:57)
[2018-05-16] MEDS: METOPROLOL TARTRATE 25MG TABLET PO SCH ×2 (08:48→20:58)
[2018-05-16] MEDS: FAMOTIDINE 20MG TABLET PO SCH (08:48)
[2018-05-16] MEDS: FERROUS SULFATE 325MG TABLET PO SCH ×3 (08:48→17:09)
[2018-05-16] MEDS: DOCUSATE SODIUM 100MG CAPSULE PO SCH ×2 (08:48→17:09)
[2018-05-16] MEDS: TRAMADOL 50MG TABLET PO PRN (08:49)
[2018-05-16 20:00] VITALS: BP 111/61
[2018-05-16] MEDS: POLYETHYLENE GLYCOL 3350 (17GM) 1 DOSE PACK PO SCH (20:58)
[2018-05-16] MEDS: HYDROCODONE/ACETAMINOPHEN 10/325MG TABLET PO PRN (20:58)
[2018-05-17] MEDS: HYDROCODONE/ACETAMINOPHEN 10/325MG TABLET PO PRN (06:54)
[2018-05-17 08:00] VITALS: BP 112/40
[2018-05-17] MEDS: LISINOPRIL 20MG TABLET PO SCH ×2 (08:40→21:00)
[2018-05-17] MEDS: FERROUS SULFATE 325MG TABLET PO SCH ×3 (08:40→17:09)
[2018-05-17] MEDS: DOCUSATE SODIUM 100MG CAPSULE PO SCH ×2 (08:40→17:09)
[2018-05-17] MEDS: FAMOTIDINE 20MG TABLET PO SCH (08:40)
[2018-05-17] MEDS: ASCORBIC ACID 500 MG TABLET PO SCH ×2 (08:40→21:14)
[2018-05-17] MEDS: METOPROLOL TARTRATE 25MG TABLET PO SCH ×2 (08:40→21:16)
[2018-05-17] MEDS: ENOXAPARIN 40MG/0.4ML SYR SUBCUT SCH (08:40)
[2018-05-17] MEDS: ZINC SULFATE 220 MG ( 50 ) CAPSULE PO SCH (08:40)
[2018-05-17] MEDS ORDERED: HYDROCODONE/ACETAMINOPHEN 10/325MG TABLET PO PRN (12:15)
[2018-05-17 20:00] VITALS: BP 127/46
[2018-05-17] MEDS ORDERED: TRAMADOL 50MG TABLET PO PRN (20:15)
[2018-05-17] MEDS: POLYETHYLENE GLYCOL 3350 (17GM) 1 DOSE PACK PO SCH (21:00)
[2018-05-17] MEDS: TRAMADOL 50MG TABLET PO PRN (21:15)
[2018-05-18] MEDS ORDERED: TRAMADOL 50MG TABLET PO PRN (03:00)
[2018-05-18 06:45] LABS: BASOPHILS % 0.9 % (0.0-2.0); EOSINOPHILS % 0.7 % (0.0-5.0); HEMATOCRIT. 27.4 % (36.0-48.0); HEMOGLOBIN. 8.8 g/dL (12.0-16.0); LYMPHOCYTES % 13.2 % (20.0-50.0); MEAN CORPUSCULAR HEMOGLOBIN 28.9 pg (28.0-32.0); MEAN CORPUSCULAR VOLUME 89.8 fL (81.0-99.0); MONOCYTES % 5.3 % (2.0-8.0); NEUTROPHILS % 79.9 % (40.0-76.0); RED BLOOD CELL COUNT 3.06 mill/uL (4.2-5.4); RED CELL DISTRIBUTION WIDTH 18.3 % (11.6-14.6)
[2018-05-18 07:17] LABS: CHLORIDE 100 mEq/L (98-107)
[2018-05-18 08:24] VITALS: BP 121/48
[2018-05-18 08:39] LABS: PLATELET 435 x1000/uL (130-400)
[2018-05-18] MEDS: DOCUSATE SODIUM 100MG CAPSULE PO SCH ×2 (09:49→17:38)
[2018-05-18] MEDS: ZINC SULFATE 220 MG ( 50 ) CAPSULE PO SCH (09:49)
[2018-05-18] MEDS: ASCORBIC ACID 500 MG TABLET PO SCH ×2 (09:49→21:42)
[2018-05-18] MEDS: FERROUS SULFATE 325MG TABLET PO SCH ×3 (09:49→17:38)
[2018-05-18] MEDS: METOPROLOL TARTRATE 25MG TABLET PO SCH ×2 (09:49→21:00)
[2018-05-18] MEDS: FAMOTIDINE 20MG TABLET PO SCH (09:49)
[2018-05-18] MEDS: ENOXAPARIN 40MG/0.4ML SYR SUBCUT SCH (09:50)
[2018-05-18] MEDS: LISINOPRIL 20MG TABLET PO SCH ×2 (09:50→21:43)
[2018-05-18 20:00] VITALS: BP 116/50
[2018-05-18] MEDS: POLYETHYLENE GLYCOL 3350 (17GM) 1 DOSE PACK PO SCH (21:00)
[2018-05-19] MEDS: TRAMADOL 50MG TABLET PO PRN (06:17)
[2018-05-19 08:17] VITALS: BP 115/49
[2018-05-19] MEDS: FAMOTIDINE 20MG TABLET PO SCH (08:44)
[2018-05-19] MEDS: ZINC SULFATE 220 MG ( 50 ) CAPSULE PO SCH (08:44)
[2018-05-19] MEDS: FERROUS SULFATE 325MG TABLET PO SCH ×3 (08:44→17:36)
[2018-05-19] MEDS: ASCORBIC ACID 500 MG TABLET PO SCH ×2 (08:44→22:24)
[2018-05-19] MEDS: LISINOPRIL 20MG TABLET PO SCH ×2 (08:45→21:00)
[2018-05-19] MEDS: METOPROLOL TARTRATE 25MG TABLET PO SCH ×2 (08:45→21:00)
[2018-05-19] MEDS: DOCUSATE SODIUM 100MG CAPSULE PO SCH ×2 (08:45→17:36)
[2018-05-19] MEDS: ENOXAPARIN 40MG/0.4ML SYR SUBCUT SCH (08:46)
[2018-05-19 20:00] VITALS: BP 100/51
[2018-05-19] MEDS ORDERED: HYDROCODONE/ACETAMINOPHEN 10/325MG TABLET PO PRN (20:15)
[2018-05-19] MEDS: POLYETHYLENE GLYCOL 3350 (17GM) 1 DOSE PACK PO SCH (21:00)
[2018-05-20] MEDS: TRAMADOL 50MG TABLET PO PRN (04:50)
[2018-05-20 08:00] VITALS: BP 117/50
[2018-05-20] MEDS: ENOXAPARIN 40MG/0.4ML SYR SUBCUT SCH (09:44)
[2018-05-20] MEDS: FAMOTIDINE 20MG TABLET PO SCH (09:45)
[2018-05-20] MEDS: ZINC SULFATE 220 MG ( 50 ) CAPSULE PO SCH (09:45)
[2018-05-20] MEDS: DOCUSATE SODIUM 100MG CAPSULE PO SCH ×2 (09:45→16:29)
[2018-05-20] MEDS: METOPROLOL TARTRATE 25MG TABLET PO SCH ×2 (09:45→21:00)
[2018-05-20] MEDS: ASCORBIC ACID 500 MG TABLET PO SCH ×2 (09:45→22:08)
[2018-05-20] MEDS: LISINOPRIL 20MG TABLET PO SCH ×2 (09:45→21:00)
[2018-05-20] MEDS: FERROUS SULFATE 325MG TABLET PO SCH ×3 (09:45→16:29)
[2018-05-20 20:00] VITALS: BP 105/44
[2018-05-20] MEDS: POLYETHYLENE GLYCOL 3350 (17GM) 1 DOSE PACK PO SCH (21:00)
[2018-05-20] MEDS: ACETAMINOPHEN 325MG TABLET PO PRN (22:08)
[2018-05-21 08:00] VITALS: BP 113/45
[2018-05-21] MEDS: ENOXAPARIN 40MG/0.4ML SYR SUBCUT SCH (08:56)
[2018-05-21] MEDS: FAMOTIDINE 20MG TABLET PO SCH (08:59)
[2018-05-21] MEDS: ERGOCALCIFEROL 50000UNITS CAPSULE PO SCH (08:59)
[2018-05-21] MEDS: METOPROLOL TARTRATE 25MG TABLET PO SCH (09:00)
[2018-05-21] MEDS: FERROUS SULFATE 325MG TABLET PO SCH ×2 (09:00→12:37)
[2018-05-21] MEDS: DOCUSATE SODIUM 100MG CAPSULE PO SCH (09:00)
[2018-05-21] MEDS: ZINC SULFATE 220 MG ( 50 ) CAPSULE PO SCH (09:00)
[2018-05-21] MEDS: LISINOPRIL 20MG TABLET PO SCH (09:00)
[2018-05-21] MEDS: ASCORBIC ACID 500 MG TABLET PO SCH (09:00)
[2018-05-21 10:06] VITALS: BP 113/45
== END 2018-05-21 16:45 | disposition home health service (06) | DRG 535 ==
PROVIDERS: ADMIT Physical Medicine & Rehabilitation Spinal Cord Injury Medicine; ATTEND Internal Medicine
DX: S72.141A Displaced intertrochanteric fracture of right femur, initial encounter for closed fracture (principal); E43 Unspecified severe protein-calorie malnutrition; D62 Acute posthemorrhagic anemia; N39.0 Urinary tract infection, site not specified; E83.51 Hypocalcemia; F17.210 Nicotine dependence, cigarettes, uncomplicated; E83.52 Hypercalcemia; I10 Essential (primary) hypertension; M79.609 Pain in unspecified limb; R73.9 Hyperglycemia, unspecified; R53.81 Other malaise; W18.39XA Other fall on same level, initial encounter; F06.31 Mood disorder due to known physiological condition with depressive features; D72.829 Elevated white blood cell count, unspecified; S72.001A Fracture of unspecified part of neck of right femur, initial encounter for closed fracture; Z68.25 Body mass index [BMI] 25.0-25.9, adult; Y93.89 Activity, other specified; Y92.098 Other place in other non-institutional residence as the place of occurrence of the external cause; Y99.8 Other external cause status; Z82.49 Family history of ischemic heart disease and other diseases of the circulatory system; Z79.899 Other long term (current) drug therapy
CPT/HCPCS: 36415; 80048; 80061; 82306; 82728; 82746; 83036; 83540; 83550; 83735; 84100; 84134; 84443; 93970; 97110; 97116; 97162; 97166; 97530; 97535; J0690; J1650; J1885; J7050

== ENCOUNTER 2019-03-09 17:55 | Emergency (ER) | payer MEDICARE, MEDICAID ==
[~2019-03-09] VITALS: Ht 165.1 cm; Wt 66.0 kg
[2019-03-09 19:55] VITALS: BP 171/82
== END 2019-03-09 19:55 | disposition home or self-care (01) ==
LOC: ER 17:55
DX: L30.9 Dermatitis, unspecified (principal); I10 Essential (primary) hypertension
CPT/HCPCS: 99281

== ENCOUNTER 2019-10-29 16:29 | Emergency (ER) | payer MEDICARE, MEDICAID ==
[~2019-10-29] VITALS: Ht 167.6 cm; Wt 65.0 kg
[2019-10-29 16:32] VITALS: BP 125/77
[2019-12-03] MEDS ORDERED: ACET-2708 PO (20:57)
== END 2019-10-29 17:56 | disposition left against medical advice (07) ==
LOC: ER 16:29
DX: Z53.21 Procedure and treatment not carried out due to patient leaving prior to being seen by health care provider (principal)

== ENCOUNTER 2021-09-25 08:11 | Emergency (ER) | payer MEDICARE, MEDICAID ==
[~2021-09-25] VITALS: Ht 167.6 cm; Wt 89.0 kg
[~2021-09-25 08:11] MED LIST: ACET-2708 PO
[2021-09-25 08:15] VITALS: BP 175/74
[2021-09-25] MEDS ORDERED: CLOT30CR38 TP (09:18)
== END 2021-09-25 10:23 | disposition home or self-care (01) ==
LOC: ER 08:11
DX: B35.1 Tinea unguium (principal)
CPT/HCPCS: 99282

== ENCOUNTER 2022-09-15 14:57 | Inpatient (IN) | payer OTHER, MEDICAID ==
[~2022-09-15] VITALS: Ht 166.4 cm; Wt 68.5 kg
[~2022-09-15 14:57] MED LIST changes: +CLOT30CR38 TP
[2022-09-15 15:47] LABS: BASOPHILS % 0.8 % (0.0-2.0); EOSINOPHILS % 1.2 % (0.0-5.0); HEMATOCRIT. 35.2 % (36.0-48.0); HEMOGLOBIN. 11.5 g/dL (12.0-16.0); LYMPHOCYTES % 16.5 % (20.0-50.0); MEAN CORPUSCULAR HEMOGLOBIN 27.8 pg (28.0-32.0); MEAN CORPUSCULAR VOLUME 84.7 fL (81.0-99.0); MEAN PLATELET VOLUME 7.6 fl (7.4-10.4); MONOCYTES % 6.6 % (2.0-8.0); NEUTROPHILS % 74.9 % (40.0-76.0); PLATELET 222 x1000/uL (130-400); RED BLOOD CELL COUNT 4.15 mill/uL (4.2-5.4); RED CELL DISTRIBUTION WIDTH 16.3 % (11.6-14.6)
[2022-09-15 15:53] LABS: CHLORIDE 109 mEq/L (98-107)
[2022-09-15 15:56] LABS: PROTHROMBIN TIME 10.4 sec (9.6-11.0)
[2022-09-15 19:36] VITALS: BP 170/99; PULSE 89; RESP 20; TEMP 97
[2022-09-15] MEDS ORDERED: IPRATROPIUM/ALBUTEROL 0.5-3(2.5)MG/3ML NEB HHN PRN (19:45)
[2022-09-15] MEDS ORDERED: MAGNESIUM/ALUMINUM HYDROXIDE/SIMETHICONE 30ML UDC PO PRN (19:45)
[2022-09-15] MEDS ORDERED: NA PHOS,M-B/NA PHOS,DI-BA ENEMA 118ML PR PRN (19:45)
[2022-09-15] MEDS ORDERED: CLONIDINE 0.1MG TABLET PO PRN (19:45)
[2022-09-15] MEDS ORDERED: DOCUSATE SODIUM 100MG CAPSULE PO PRN (19:45)
[2022-09-15] MEDS ORDERED: ENOXAPARIN 40MG/0.4ML SYR SUBCUT SCH (19:45)
[2022-09-15] MEDS ORDERED: ONDANSETRON HCL 4MG/2ML INJ IV PRN (19:45)
[2022-09-15] MEDS ORDERED: ACETAMINOPHEN 325MG TABLET PO PRN (19:45)
[2022-09-15] MEDS ORDERED: GUAIFENESIN 200MG/10ML SUGAR FREE UDC PO PRN (19:45)
[2022-09-15 20:00] VITALS: BP 170/99; PULSE 89; RESP 20; TEMP 97
[2022-09-15] MEDS ORDERED: POTASSIUM CHLORIDE 20MEQ TABLET SR PO NR (20:00)
[2022-09-15] MEDS ORDERED: NALOXONE HCL 0.4MG/ML VIAL IV PRN (20:00)
[2022-09-15 20:44] LABS: FERRITIN 37 ng/mL (10-291)
[2022-09-15] MEDS ORDERED: MORPHINE SULFATE 2 MG/ML CPJ (NOT FOR IM USE) IV PRN (20:45)
[2022-09-15 20:51] LABS: VITAMIN B12 SERUM 314 pg/mL (211-911)
[2022-09-15] MEDS ORDERED: ASPIRIN 81MG TABLET PO NR (21:00)
[2022-09-15] MEDS ORDERED: FUROSEMIDE 40MG/4ML VIAL IVP NR (21:30)
[2022-09-15 21:36] LABS: T4 FREE 0.91 ng/dL (0.76-1.46)
[2022-09-15] MEDS: FAMOTIDINE 20MG TABLET PO SCH (21:47)
[2022-09-16] VITALS: BP 156/59; PULSE 70; RESP 20; TEMP 98.2
[2022-09-16 04:00] VITALS: BP 139/77; PULSE 89; RESP 20; TEMP 98
[2022-09-16 06:08] LABS: BASOPHILS % 0.4 % (0.0-2.0); EOSINOPHILS % 1.3 % (0.0-5.0); HEMOGLOBIN. 11.3 g/dL (12.0-16.0); LYMPHOCYTES % 16.5 % (20.0-50.0); MEAN CORPUSCULAR HEMOGLOBIN 27.7 pg (28.0-32.0); MEAN CORPUSCULAR VOLUME 85.7 fL (81.0-99.0); MEAN PLATELET VOLUME 7.8 fl (7.4-10.4); MONOCYTES % 7.8 % (2.0-8.0); PLATELET 194 x1000/uL (130-400); RED BLOOD CELL COUNT 4.08 mill/uL (4.2-5.4); RED CELL DISTRIBUTION WIDTH 16.2 % (11.6-14.6)
[2022-09-16 08:00] VITALS: BP 127/61; PULSE 68; RESP 20; TEMP 97.1
[2022-09-16 09:51] LABS: T4 FREE 0.91 ng/dL (0.76-1.46)
[2022-09-16 11:19] LABS: CLARITY URINE CLEAR (CLEAR); COLOR URINE YELLOW (YELLOW); KETONES URINE NEGATIVE (NEGATIVE); LEUKOCYTE ESTERASE URINE TRACE (NEGATIVE); NITRITE URINE NEGATIVE (NEGATIVE); OCCULT BLOOD URINE NEGATIVE (NEGATIVE); PH URINE 6.5 (4.5-8.0); PROTEIN URINE NEGATIVE (NEGATIVE); UROBILINOGEN URINE 0.2 E.U./dL (0.2-1.0)
[2022-09-16 12:00] VITALS: BP 121/83; PULSE 88; RESP 18; TEMP 96
[2022-09-16 16:00] VITALS: BP 152/84; PULSE 98; RESP 18; TEMP 98.5
[2022-09-16] MEDS: ACETAMINOPHEN 325MG TABLET PO PRN (18:38)
[2022-09-16 20:00] VITALS: BP 147/52; PULSE 67; RESP 18; TEMP 96.9
[2022-09-16] MEDS: FAMOTIDINE 20MG TABLET PO SCH (20:32)
[2022-09-16] MEDS: ATORVASTATIN CALCIUM 40MG TABLET PO SCH (20:34)
[2022-09-17] VITALS: BP 151/54; PULSE 56; RESP 18; TEMP 97.2
[2022-09-17 04:00] VITALS: BP 129/80; PULSE 89; RESP 18; TEMP 98.4
[2022-09-17 06:42] LABS: BASOPHILS % 0.5 % (0.0-2.0); EOSINOPHILS % 1.3 % (0.0-5.0); HEMATOCRIT. 34.5 % (36.0-48.0); HEMOGLOBIN. 11.4 g/dL (12.0-16.0); LYMPHOCYTES % 17.2 % (20.0-50.0); MEAN CORPUSCULAR HEMOGLOBIN 27.8 pg (28.0-32.0); MEAN CORPUSCULAR VOLUME 84.2 fL (81.0-99.0); MEAN PLATELET VOLUME 8.1 fl (7.4-10.4); MONOCYTES % 6.7 % (2.0-8.0); NEUTROPHILS % 74.3 % (40.0-76.0); PLATELET 202 x1000/uL (130-400); RED BLOOD CELL COUNT 4.09 mill/uL (4.2-5.4); RED CELL DISTRIBUTION WIDTH 16.4 % (11.6-14.6)
[2022-09-17 08:00] VITALS: BP 156/56; PULSE 56; RESP 18; TEMP 96.6
[2022-09-17 12:00] VITALS: BP 137/62; PULSE 62; RESP 20; TEMP 96
[2022-09-17 16:00] VITALS: BP 134/57; PULSE 67; RESP 20; TEMP 97
[2022-09-17 20:00] VITALS: BP 140/80; PULSE 80; RESP 20; TEMP 97.8
[2022-09-17] MEDS: ATORVASTATIN CALCIUM 40MG TABLET PO SCH (20:34)
[2022-09-17] MEDS: FAMOTIDINE 20MG TABLET PO SCH (20:34)
[2022-09-18] VITALS: BP 140/66; PULSE 77; RESP 20; TEMP 98.4
[2022-09-18 04:00] VITALS: BP 142/59; PULSE 60; RESP 18; TEMP 97
[2022-09-18] MEDS: ACETAMINOPHEN 325MG TABLET PO PRN (04:18)
[2022-09-18 08:00] VITALS: BP 114/56; PULSE 56; RESP 18; TEMP 97.7
[2022-09-18 12:00] VITALS: BP_SYST 129; BP_DIAS 59; BP_DIAS 80; PULSE 71; RESP 18; TEMP 97.8
[2022-09-18 16:00] VITALS: BP 128/53; PULSE 64; RESP 18; TEMP 97.7
[2022-09-18] MEDS: ATORVASTATIN CALCIUM 40MG TABLET PO SCH (20:34)
[2022-09-18] MEDS: FAMOTIDINE 20MG TABLET PO SCH (20:34)
[2022-09-19] MEDS: HYDROCODONE/ACETAMINOPHEN 5/325MG TABLET PO PRN ×2 (03:26→05:31)
[2022-09-19 08:00] VITALS: BP 132/64; PULSE 61; RESP 19; TEMP 97.9
[2022-09-19] MEDS ORDERED: LIDOCAINE HCL 1% 10 MG/ML 10ML VIAL ONE (08:46)
[2022-09-19] MEDS: ASPIRIN 81MG TABLET PO SCH (08:53)
[2022-09-19] MEDS ORDERED: NITROGLYCERIN SPRAY/4.9GM CAN TL NR (10:15)
[2022-09-19] MEDS ORDERED: IOHEXOL-350 100 ML BOTTLE ONE (10:43)
[2022-09-19 12:00] VITALS: BP 130/68; PULSE 64; RESP 20; TEMP 98
[2022-09-19 16:00] VITALS: BP 132/64; PULSE 61; RESP 20; TEMP 98.4
[2022-09-19 20:00] VITALS: BP 146/69; PULSE 70; RESP 18; TEMP 97.7
[2022-09-19] MEDS: FAMOTIDINE 20MG TABLET PO SCH (21:47)
[2022-09-19] MEDS: ATORVASTATIN CALCIUM 40MG TABLET PO SCH (21:47)
[2022-09-20] VITALS: BP 147/61; PULSE 67; RESP 18; TEMP 97.9
[2022-09-20 04:00] VITALS: BP 152/75; PULSE 62; RESP 17; TEMP 97.9
[2022-09-20 08:00] VITALS: BP 152/75; PULSE 62; RESP 17; TEMP 97.9
[2022-09-20] MEDS: ASPIRIN 81MG TABLET PO SCH (08:42)
[2022-09-20 12:00] VITALS: BP 148/77; PULSE 60; RESP 18; TEMP 98
[2022-09-20 16:00] VITALS: BP 127/60; PULSE 72; RESP 18; TEMP 97.9
[2022-09-20 20:00] VITALS: BP 123/70; PULSE 81; RESP 17; TEMP 97.8
[2022-09-20] MEDS: FAMOTIDINE 20MG TABLET PO SCH (20:21)
[2022-09-20] MEDS: ATORVASTATIN CALCIUM 40MG TABLET PO SCH (20:21)
[2022-09-21] VITALS: BP 143/78; PULSE 74; RESP 18; TEMP 97.9
[2022-09-21 08:00] VITALS: BP 154/70; PULSE 76; RESP 18; TEMP 97.8
[2022-09-21] MEDS: ASPIRIN 81MG TABLET PO SCH (08:43)
[2022-09-21 12:00] VITALS: BP 127/56; PULSE 72; RESP 18; TEMP 97.4
[2022-09-21 16:00] VITALS: BP 110/56; PULSE 73; RESP 18; TEMP 98.5
[2022-09-21 20:00] VITALS: BP 158/67; PULSE 78; RESP 18; TEMP 98.1
[2022-09-21] MEDS: ATORVASTATIN CALCIUM 40MG TABLET PO SCH (21:09)
[2022-09-21] MEDS: FAMOTIDINE 20MG TABLET PO SCH (21:09)
[2022-09-22] VITALS: BP 146/75; PULSE 75; RESP 19; TEMP 97.9
[2022-09-22 04:00] VITALS: BP 149/64; PULSE 71; RESP 17; TEMP 97.9
[2022-09-22 06:05] LABS: BASOPHILS % 0.8 % (0.0-2.0); EOSINOPHILS % 1.3 % (0.0-5.0); HEMATOCRIT. 39.3 % (36.0-48.0); MEAN CORPUSCULAR HEMOGLOBIN 27.9 pg (28.0-32.0); MEAN CORPUSCULAR VOLUME 84.3 fL (81.0-99.0); MEAN PLATELET VOLUME 8.2 fl (7.4-10.4); MONOCYTES % 7.5 % (2.0-8.0); NEUTROPHILS % 72.4 % (40.0-76.0); PLATELET 241 x1000/uL (130-400); RED BLOOD CELL COUNT 4.66 mill/uL (4.2-5.4); RED CELL DISTRIBUTION WIDTH 16.1 % (11.6-14.6)
[2022-09-22 06:36] LABS: PHOSPHORUS 3.7 mg/dL (2.5-4.9)
[2022-09-22 08:00] VITALS: BP 142/59; PULSE 75; RESP 18; TEMP 97.7
[2022-09-22] MEDS ORDERED: FERROUS SULFATE 325MG TABLET PO SCH (09:00)
[2022-09-22] MEDS: ASPIRIN 81MG TABLET PO SCH (09:21)
[2022-09-22] MEDS ORDERED: FERR-63 PO (11:52)
[2022-09-22] MEDS ORDERED: ASPI-1160 PO (11:52)
[2022-09-22] MEDS ORDERED: FAMO20TA8 PO (11:52)
[2022-09-22 12:00] VITALS: BP 156/88; PULSE 66; RESP 18; TEMP 97.5
[2022-09-22 16:00] VITALS: BP 129/52; PULSE 70; RESP 18; TEMP 97.5
[2022-09-22 20:00] VITALS: BP 146/80; PULSE 84; RESP 18; TEMP 98.6
[2022-09-22] MEDS: FAMOTIDINE 20MG TABLET PO SCH (21:19)
[2022-09-22] MEDS: ATORVASTATIN CALCIUM 40MG TABLET PO SCH (21:20)
[2022-09-23] VITALS: BP 139/80; PULSE 90; RESP 18; TEMP 98.4
[2022-09-23 01:57] LABS: PROTHROMBIN TIME 10.4 sec (9.6-11.0)
[2022-09-23 04:00] VITALS: BP 150/64; PULSE 64; RESP 18; TEMP 98.8
[2022-09-23 06:20] LABS: BASOPHILS % 0.9 % (0.0-2.0); EOSINOPHILS % 1.1 % (0.0-5.0); HEMATOCRIT. 38.3 % (36.0-48.0); HEMOGLOBIN. 12.8 g/dL (12.0-16.0); LYMPHOCYTES % 20.3 % (20.0-50.0); MEAN CORPUSCULAR HEMOGLOBIN 28.1 pg (28.0-32.0); MEAN CORPUSCULAR VOLUME 84.4 fL (81.0-99.0); MEAN PLATELET VOLUME 7.8 fl (7.4-10.4); MONOCYTES % 7.2 % (2.0-8.0); NEUTROPHILS % 70.5 % (40.0-76.0); PLATELET 242 x1000/uL (130-400); RED BLOOD CELL COUNT 4.54 mill/uL (4.2-5.4); RED CELL DISTRIBUTION WIDTH 16.2 % (11.6-14.6)
[2022-09-23 08:00] VITALS: BP 150/65; PULSE 73; RESP 17; TEMP 98
[2022-09-23] MEDS: ASPIRIN 81MG TABLET PO SCH (08:38)
[2022-09-23] MEDS ORDERED: HEPARIN 1000 UNITS/ML 10ML ONE (10:38)
[2022-09-23] MEDS ORDERED: LIDOCAINE HCL 1% 20ML VIAL (Pyxis) INJ ONE (10:38)
[2022-09-23] MEDS ORDERED: IODIXANOL 320MG/ML 100 ML BOTTLE IV ONE ×2 (10:38→13:39)
[2022-09-23 12:00] VITALS: BP 154/67; PULSE 74; RESP 16; TEMP 98.6
[2022-09-23] MEDS ORDERED: MIDAZOLAM HCL 2 MG/2 ML VIAL ONE (12:30)
[2022-09-23] MEDS ORDERED: FENTANYL CITRATE/PF 50MCG/ML 2ML VIAL ONE (12:30)
[2022-09-23] MEDS ORDERED: HYDRALAZINE 20MG/ML VIAL ONE (13:51)
[2022-09-23 16:00] VITALS: BP 139/55; PULSE 85; RESP 15; TEMP 97.6
[2022-09-23 20:00] VITALS: BP 130/80; PULSE 96; RESP 20; TEMP 97.8
[2022-09-23] MEDS: FAMOTIDINE 20MG TABLET PO SCH (21:24)
[2022-09-23] MEDS: ATORVASTATIN CALCIUM 40MG TABLET PO SCH (21:24)
[2022-09-24] VITALS: BP 128/66; PULSE 90; RESP 18; TEMP 97.4
[2022-09-24 04:00] VITALS: BP 132/54; PULSE 78; RESP 18; TEMP 97.8
[2022-09-24 08:00] VITALS: BP 129/59; PULSE 76; RESP 18; TEMP 98
[2022-09-24] MEDS: ASPIRIN 81MG TABLET PO SCH (08:40)
[2022-09-24 09:02] LABS: BASOPHILS % 0.5 % (0.0-2.0); EOSINOPHILS % 0.8 % (0.0-5.0); HEMATOCRIT. 35.9 % (36.0-48.0); HEMOGLOBIN. 11.9 g/dL (12.0-16.0); LYMPHOCYTES % 9.5 % (20.0-50.0); MEAN CORPUSCULAR HEMOGLOBIN 27.7 pg (28.0-32.0); MEAN CORPUSCULAR VOLUME 83.5 fL (81.0-99.0); MEAN PLATELET VOLUME 8.3 fl (7.4-10.4); MONOCYTES % 5.5 % (2.0-8.0); NEUTROPHILS % 83.7 % (40.0-76.0); PLATELET 242 x1000/uL (130-400); RED CELL DISTRIBUTION WIDTH 15.9 % (11.6-14.6)
[2022-09-24 12:00] VITALS: BP 125/56; PULSE 51; RESP 20; TEMP 98
[2022-09-24 16:00] VITALS: BP 139/62; PULSE 76; RESP 20; TEMP 98.2
[2022-09-24] MEDS ORDERED: CLOP-31 PO (16:53)
[2022-09-24] MEDS ORDERED: CLOPIDOGREL 75MG TABLET PO SCH (17:00)
[2022-09-24 17:01] VITALS: BP 139/62; PULSE 76; TEMP 98.2; O2SAT 99
== END 2022-09-24 20:05 | disposition home health service (06) | DRG 253 ==
LOC: ER 14:57 → EDBEDREQ 18:02 → EDBEDREQSVC 18:02 → EDBEDREQTM 18:02 → ENRESERV 18:22 → SUPCPDRO 18:47 → 8WST 20:23
PROVIDERS: ADMIT Internal Medicine; ATTEND Internal Medicine
PROC: 047M3ZZ Dilation of Right Popliteal Artery, Percutaneous Approach (ICD-10-PCS; principal; 2022-09-23)
PROC: 047K34Z Dilation of Right Femoral Artery with Drug-eluting Intraluminal Device, Percutaneous Approach (ICD-10-PCS; 2022-09-23)
PROC: B41D1ZZ Fluoroscopy of Aorta and Bilateral Lower Extremity Arteries using Low Osmolar Contrast (ICD-10-PCS; 2022-09-23)
PROC: B41J1ZZ Fluoroscopy of Other Lower Arteries using Low Osmolar Contrast (ICD-10-PCS; 2022-09-23)
DX: I70.292 Other atherosclerosis of native arteries of extremities, left leg (principal); M48.56XA Collapsed vertebra, not elsewhere classified, lumbar region, initial encounter for fracture; I71.23 Aneurysm of the descending thoracic aorta, without rupture; D63.8 Anemia in other chronic diseases classified elsewhere; E87.6 Hypokalemia; F02.80 Dementia in other diseases classified elsewhere, unspecified severity, without behavioral disturbance, psychotic disturbance, mood disturbance, and anxiety; D25.9 Leiomyoma of uterus, unspecified; F17.210 Nicotine dependence, cigarettes, uncomplicated; G30.9 Alzheimer's disease, unspecified; I25.10 Atherosclerotic heart disease of native coronary artery without angina pectoris; M71.20 Synovial cyst of popliteal space [Baker], unspecified knee; N28.1 Cyst of kidney, acquired; M41.9 Scoliosis, unspecified; I87.2 Venous insufficiency (chronic) (peripheral); R07.89 Other chest pain; I11.0 Hypertensive heart disease with heart failure; I50.9 Heart failure, unspecified; Z20.822 Contact with and (suspected) exposure to COVID-19; X58.XXXA Exposure to other specified factors, initial encounter; E78.5 Hyperlipidemia, unspecified; Z80.3 Family history of malignant neoplasm of breast; Z85.42 Personal history of malignant neoplasm of other parts of uterus; Z86.73 Personal history of transient ischemic attack (TIA), and cerebral infarction without residual deficits; Z86.79 Personal history of other diseases of the circulatory system; Z79.899 Other long term (current) drug therapy; Z83.3 Family history of diabetes mellitus; Z91.148 Patient's other noncompliance with medication regimen for other reason
CPT/HCPCS: 36415; 36573; 71045; 71275; 74174; 74176; 75571; 80048; 80053; 80061; 81003; 82607; 82728; 82746; 83036; 83540; 83550; 83735; 83880; 84100; 84439; 84443; 84484; 85025; 85347; 85379; 86850; 86900; 87426; 93005; 93306; 93923; 93970; 97161; 97164; 99285; C1725; J0360; J1644; J1940; J2250; J3010; J3490; Q9967

== ENCOUNTER 2023-08-29 22:12 | Emergency (ER) | payer OTHER, MEDICAID ==
[~2023-08-29] VITALS: Ht 170.2 cm; Wt 75.0 kg
[~2023-08-29 22:12] MED LIST changes: +ASPI-1160 PO; +CLOP-31 PO; +FAMO20TA8 PO; +FERR-63 PO
[2023-08-29 22:20] VITALS: BP 171/74; PULSE 66; RESP 18; TEMP 98.2; O2SAT 99
[2023-08-30 00:46] LABS: BASOPHILS % 0.9 % (0.0-2.0); EOSINOPHILS % 0.7 % (0.0-5.0); HEMATOCRIT. 41.4 % (36.0-48.0); HEMOGLOBIN. 13.3 g/dL (12.0-16.0); LYMPHOCYTES % 15.9 % (20.0-50.0); MEAN CORPUSCULAR HEMOGLOBIN 27.1 pg (28.0-32.0); MEAN CORPUSCULAR HGB CONC 32.2 g/dL (31.0-37.0); MEAN CORPUSCULAR VOLUME 84.2 fL (81.0-99.0); MEAN PLATELET VOLUME 7.7 fl (7.4-10.4); MONOCYTES % 3.9 % (2.0-8.0); NEUTROPHILS % 78.6 % (40.0-76.0); PLATELET 248 x1000/uL (130-400); RED BLOOD CELL COUNT 4.92 mill/uL (4.2-5.4); RED CELL DISTRIBUTION WIDTH 16.7 % (11.6-14.6); WHITE BLOOD COUNT 5.2 x1000/uL (4.5-11.0)
[2023-08-30 00:58] LABS: INR 0.9; PARTIAL THROMBOPLASTIN TIME 29.1 sec (23.4-31.0); PROTHROMBIN TIME 10.3 sec (9.6-11.0)
[2023-08-30 01:01] LABS: CHLORIDE 105 mEq/L (98-107); POTASSIUM 4.2 mEq/L (3.5-5.1); SODIUM 142 mEq/L (136-145)
[2023-08-30 01:02] LABS: CALCIUM 10.2 mg/dL (8.7-10.4); CARBON DIOXIDE 29 mEq/L (21-32)
[2023-08-30 01:07] LABS: CREATININE 1.1 mg/dL (0.6-1.0); GLUCOSE 147 mg/dL (70-105); UREA NITROGEN BLOOD 13 mg/dL (9-23)
[2023-08-30 01:08] LABS: TROPONIN I HIGH SENSITIVITY 4 ng/L (3.0-34)
[2023-08-30] MEDS ORDERED: ACET-2708 MT (02:17)
[2023-08-30] MEDS: ACETAMINOPHEN 325MG TABLET PO ONE (02:22)
== END 2023-08-30 02:59 | disposition home or self-care (01) ==
LOC: ER 22:12
DX: I87.8 Other specified disorders of veins (principal); R60.0 Localized edema; I10 Essential (primary) hypertension; Z79.899 Other long term (current) drug therapy; Z85.9 Personal history of malignant neoplasm, unspecified
CPT/HCPCS: 36415; 71045; 80048; 83880; 84484; 85025; 93005; 93970; 99284